=== PATIENT | female | born 1975 | race Caucasian/White ===

== ENCOUNTER 2020-07-06 10:55 | Emergency (ER) | payer SELFPAY ==
[~2020-07-06] VITALS: Wt 113.4 kg
[2020-07-06] MEDS ORDERED: TYLENOL325 M1 PO (13:40)
[2020-07-06] MEDS ORDERED: CYCLOBENZAPRINE10 MG PO (13:40)
[2020-07-06] MEDS ORDERED: NAPROSYN500 MG PO (13:40)
== END 2020-07-06 13:53 | disposition home or self-care (01) ==
LOC: ED 10:55
DX: S39.012A Strain of muscle, fascia and tendon of lower back, initial encounter (principal); M19.90 Unspecified osteoarthritis, unspecified site; Z88.8 Allergy status to other drugs, medicaments and biological substances; W01.0XXA Fall on same level from slipping, tripping and stumbling without subsequent striking against object, initial encounter; Y93.89 Activity, other specified; Y92.89 Other specified places as the place of occurrence of the external cause; Y99.8 Other external cause status